=== PATIENT | male | born 1950 | race Caucasian/White ===

== ENCOUNTER 2017-10-23 08:21 | Day surgery (SDC) | payer MEDICARE, BC ==
[~2017-10-23 08:21] MED LIST: EPINEPHrine 1 MG/ML SDV ONE; Lactated Ringers 1,000 ML IV SCH; Lidocaine 1%/Sod Bicarbonate in NS 8.4% 1 ML Syringe PRN; Ropivacaine 0.5% 5 MG/ML 30 ML SDV ONE; Sodium Chloride 0.9% 10 ML Syringe FLUSH PRN
[2017-10-23] MEDS ORDERED: Lidocaine 1% 2 ML ONE (08:52)
[2017-10-23] MEDS ORDERED: fentaNYL 100 MCG/2 ML SDV ONE ×2 (08:53→11:49)
[2017-10-23] MEDS ORDERED: Midazolam 1 MG/ML 2 ML SDV ONE (08:53)
--- NOTE | 2017-10-23 08:57 | PCM.PREANE ---
Preanesthetic Assessment - Procedure Proposed Procedure: Right shoulder video arthroscopy - Anesthesia/Transfusion/Family Hx Anesthesia History: Prior Anesthesia Without Reaction Family History of Anesthesia Reaction: No Transfusion History: No Prior Transfusion(s) - Review of Systems General: No Symptoms Pulmonary: Other (BRODY with CPAP) Cardiovascular: Other (negative heart cath a couple years ago, HLD ) Gastrointestinal: No Symptoms Neurological: No Symptoms Other: Reports: None - Physical Assessment NPO Status Date: 10/22/17 NPO Status Time: 23:00 Pulse: 62 O2 Sat by Pulse Oximetry: 96 Respiratory Rate: 16 Blood Pressure: 126/88 Temperature: 36.7 C Height: 1.7 m Weight: 81 kg ASA Class: 2 Mental Status: Alert & Oriented x3 Airway Class: Mallampati = 2 Dentition: Reports: Normal Dentition Thyro-Mental Finger Breadths: 3 Mouth Opening Finger Breadths: 3 ROM/Head Extension: Full Lungs: Clear to Auscultation, Normal Respiratory Effort Cardiovascular: Regular Rate, Regular Rhythm - Lab Values: Laboratory Last Values MRSA (PCR) Negative 10/18/17 11:10 - Allergies Allergies/Adverse Reactions: Allergies Allergy/AdvReac Type Severity Reaction Status Date / Time No Known Allergies Allergy Verified 10/21/17 15:15 - Blood Blood Available: No Product(s) Available: None - Anesthesia Plan Pre-Op Medication Ordered: None - Acknowledgements Anesthesia Type Planned: General Anesthesia (LMA ), Regional Block (right interscalene block ) Pt an Appropriate Candidate for the Planned Anesthesia: Yes Alternatives and Risks of Anesthesia Discussed w Pt/Guardian: Yes Pt/Guardian Understands and Agrees with Anesthesia Plan: Yes PreAnesthesia Questionnaire HEENT History: Reports: Allergic Rhinitis Cardiovascular History: Reports: CAD, High Cholesterol Respiratory History: Reports: Sleep Apnea Gastrointestinal History: Reports: None Genitourinary History: Reports: None CRIB CLERK History: Reports: None Musculoskeletal History: Reports: Other (See Below) Other Musculoskeletal History: low back surgery Neurological History: Reports: None Psychiatric History: Reports: None Endocrine/Metabolic History: Reports: None Hematologic History: Reports: None Immunologic History: Reports: None Oncologic (Cancer) History: Reports: None Dermatologic History: Reports: None - Past Surgical History Head Surgeries/Procedures: Reports: None HEENT Surgical History: Reports: None Cardiovascular Surgical History: Reports: Other (See Below) Other Cardiovascular Surgeries/Procedures: heart catheterization Respiratory Surgical History: Reports: None GI Surgical History: Reports: None Female Surgical History: Reports: None Male Surgical History: Reports: None Endocrine Surgical History: Reports: None Neurological Surgical History: Reports: None Musculoskeletal Surgical History: Reports: None Oncologic Surgical History: Reports: None Dermatological Surgical History: Reports: None - SUBSTANCE USE Smoking Status *Q: Former Smoker Recreational Drug Use History: No - HOME MEDS Home Medications: Home Meds Aspirin [Halfprin] 81 mg PO DAILY 10/22/17 [History] Rosuvastatin Calcium [Crestor] 40 mg PO DAILY 10/22/17 [History] - CURRENT (IN HOUSE) MEDS Current Meds: Current Medications Epinephrine HCl (Adrenalin) 3 mg .XX ONETIME ONE Stop: 10/23/17 10:31 Lactated Ringer's (Ringers, Lactated) 1,000 mls @ 125 mls/hr IV ASDIRECTED PEDRO Stop: 10/23/17 23:00 Lidocaine/Sodium Bicarbonate (Buffered Lidocaine 1% In Ns 8.4%) 0.25 ml .XX ONETIME PRN PRN Reason: Prior to IV Start Stop: 10/23/17 18:00 Sodium Chloride (Saline Flush) 10 ml FLUSH ASDIRECTED PRN PRN Reason: Keep Vein Open Stop: 10/23/17 18:00 Discontinued Medications Epinephrine HCl (Adrenalin) Confirm Administered Dose 1 mg .ROUTE .STK-MED ONE Stop: 10/23/17 07:51 Fentanyl (Sublimaze) Confirm Administered Dose 100 mcg .ROUTE .STK-MED ONE Stop: 10/23/17 08:54 Lidocaine HCl (Xylocaine-Mpf 1%) Confirm Administered Dose 2 mls @ as directed .ROUTE .STK-MED ONE Stop: 10/23/17 08:53 Midazolam HCl (Versed 1 Mg/Ml) Confirm Administered Dose 2 mg .ROUTE .STK-MED ONE Stop: 10/23/17 08:54 Ropivacaine (Naropin 0.5%) Confirm Administered Dose 30 ml .ROUTE .STK-MED ONE Stop: 10/23/17 07:51
[2017-10-23] MEDS ORDERED: Triamcinolone Acetonide 40 MG/ML 1 ML MDV ONE (09:07)
[2017-10-23] MEDS ORDERED: Bupivacaine 0.25% 30 ML SDV ONE (09:07)
--- NOTE | 2017-10-23 10:28 | PCM.SN ---
- Free Text/Narrative Note: Anesthesia Note: (Interscalene block note) Date: 10/23/17 Time Out: 950 Start: 949 Stop: 1008 Surgical Procedure: Right Shoulder Video Arthroscopy with Rotator Cuff Repair Diagnosis: Right Rotator Cuff Tear Current Procedure: Right interscalene block under US guidance for postoperative pain control requested by Dr. Lopez. Patient chart reviewed, risk/benefits discussed with patient, consent obtained. Patient positioned supine, monitors/alarms on, oxygen placed via nasal cannula at 2 LPM. IV sedation administered: Versed 2mg IV @ 0955 Fentanyl 50 mcg IV @ 0959 50 mcg IV @ 1003 Right shoulder prepped with two chloropreps. Sterile drapes placed with aseptic technique noted. Under US guidance(sterile US sleeve noted) right subclavian artery visualized along with the right brachial plexus. Plexus followed up to C6 cricoid level, and area localized with 2mls of 1% lidocaine. 22gauge 2 inch stimiplex needle advanced under US with 0.8mV with stimulation of biceps noted. Good stimulation noted with decreased voltage and absent at 0.2mVs. 1ml of Normal Saline injected with loss of stimulation noted to confirm needle not placed intraneurally. Incremental dosing of 5mls with negative aspiration noted prior to each injection of 0.5% ropivacaine with 1:200,000 epinephrine. Total volume=30mls. Tolerated procedure well. Vital Signs: Pre Procedure HR: 53 RR: 16 BP: 123/77 Spo2: 99% on 2 LPM nasal cannula Post Procedure HR: 57 RR: 16 BP: 115/75 Spo2:95% on 2LPM nasal cannula
[2017-10-23] MEDS ORDERED: EPINEPHrine 1 MG/ML 30 ML MDV ONE (10:30)
[2017-10-23] MEDS ORDERED: Rocuronium 50 MG/5 ML Vial ONE (11:48)
[2017-10-23] MEDS ORDERED: Lactated Ringers 2,000 ML ONE (11:48)
[2017-10-23] MEDS ORDERED: ceFAZolin 1 GM Vial ONE (11:48)
[2017-10-23] MEDS ORDERED: Propofol 200 MG/20 ML SDV ONE ×2 (11:48→15:52)
[2017-10-23] MEDS ORDERED: Lidocaine 1% 4 ML ONE (11:49)
[2017-10-23] MEDS ORDERED: Dexamethasone 4 MG/ML 5 ML MDV ONE (11:51)
[2017-10-23] MEDS ORDERED: Ondansetron 4 MG/2 ML SDV ONE (11:51)
[2017-10-23] MEDS ORDERED: HYDROmorphone 0.5 MG/0.5 ML Syringe IVPUSH ONE (14:26)
[2017-10-23] MEDS ORDERED: ePHEDrine/Normal Saline 25 MG/5 ML Syringe ONE (16:21)
[2017-10-23] MEDS ORDERED: HYDROmorphone 1 MG/ML Syringe ONE (16:37)
--- NOTE | 2017-10-23 17:26 | PCM.POSTAN ---
POST ANESTHESIA ASSESSMENT - MENTAL STATUS Mental Status: Alert, Oriented - VITAL SIGNS Pulse Rate: 75 SaO2: 95 Resp Rate: 17 Blood Pressure: 134/75 Temperature: 36.4 C - RESPIRATORY Respiratory Status: Respiratory Rate WNL, Airway Patent, O2 Saturation Stable - CARDIOVASCULAR CV Status: Pulse Rate WNL, Blood Pressure Stable - GASTROINTESTINAL GI Status: No Symptoms - PAIN Pain Score: 0 - POST OP HYDRATION Hydration Status: Adequate & Stable
[2017-10-23] MEDS ORDERED: fentaNYL 100 MCG/2 ML SDV IVPUSH PRN (17:29)
[2017-10-23] MEDS ORDERED: Ondansetron 4 MG/2 ML SDV IVPUSH PRN (17:29)
[2017-10-23] MEDS ORDERED: HYDROmorphone 0.5 MG/0.5 ML Syringe IVPUSH PRN (17:29)
--- NOTE | 2017-10-30 07:11 | PCM.OPNOTE ---
- General Post-Op/Procedure Note Date of Surgery/Procedure: 10/23/17 Operative Procedure(s): right shoulder video arthroscopy with subacromial decompression and extensive debridement Pre Op Diagnosis: right shoulder subacromial bursitis with impingement Post-Op Diagnosis: Same Anesthesia Technique: General ET Tube, Regional Block Primary Surgeon: Marcelo Lopez Anesthesia Provider: Arianne Briseno [place] Operator: Ruth Russell EBL in mLs: 5 Complications: None Condition: Good
--- NOTE | 2017-10-30 07:40 | OR ---
DATE OF OPERATION: 10/23/2017 SURGEON: Marcelo Lopez MD OPERATION PERFORMED: Right shoulder video arthroscopy with subacromial decompression and extensive debridement. PREOPERATIVE DIAGNOSIS: Right shoulder subacromial bursitis with impingement. POSTOPERATIVE DIAGNOSIS: Right shoulder subacromial bursitis with impingement. ANESTHESIA: General endotracheal intubation with interscalene block. ANESTHESIA PROVIDER: Arianne Dick. PHOTOGRAPHER MOTION PICTURE: Ruth Russell PA-C. ESTIMATED BLOOD LOSS: Less than 5 mL. COMPLICATIONS: None. CONDITION: Stable. DESCRIPTION OF PROCEDURE: The patient was identified in the preop holding area. Proper site was marked and identified by the surgeon. The patient was taken back to the operative theater where after adequate anesthesia, the patient was placed in a lazy left lateral decubitus position. A wedge was placed posteriorly and the patient was secured to the table. Right upper extremity was then sterilely prepped and draped in the usual sterile fashion. OR time-out was performed. The patient received 2 g IV Ancef and 15 pounds of traction was applied to the right upper extremity. At this time, standard posterior incision was made. The scope trocar was introduced to the glenohumeral joint. Spinal needle was then used and anterior portal was then created. At this time, cursory examination showed significant fraying noted of the labrum as well as significant synovitis in the glenohumeral joint. The biceps tendon showed no signs of erythema or fraying and undersurface of the acromion had a small amount of delamination noted at the anterior border of the supraspinatus, but otherwise was completely intact. There was a small amount of chondromalacia noted, grade 1/2 of the glenoid and grade 1 of the humeral head, but no full-thickness cartilage defect. At this time, debridement was done of the labrum back to a stable rim. Attention was then turned to the subacromial space and a lateral portal was created. At this time, the patient was noted to have significant synovitis and bursitis. At this time, a bursectomy and synovectomy was then performed in subacromial space debriding it back, so that it was free of any erythematous tissue. At this time, the undersurface of the border of the acromion was found to be a type 3. With use of a 4-0 full-radius bur, I was able to bring it back to a type 1 with resection of the bony spur. It was found to be a type 1 acromion after acromioplasty. At this time, the rotator cuff was visualized and there were no signs of full-thickness rotator cuff tears. At this time, excess saline was drained from the shoulder, 3-0 nylon simple sutures were used for closure of the skin. The patient was placed in a sterile soft dressing and a pillow sling, and sent to the PACU in stable condition. [place] /[id number]
== END 2017-10-23 19:00 | disposition home or self-care (01) ==
LOC: JD.SDS 08:21
PROVIDERS: ATTEND Orthopaedic Surgery
DX: M75.51 Bursitis of right shoulder (principal); M25.811 Other specified joint disorders, right shoulder; I25.10 Atherosclerotic heart disease of native coronary artery without angina pectoris; G47.33 Obstructive sleep apnea (adult) (pediatric); E78.5 Hyperlipidemia, unspecified; Z95.5 Presence of coronary angioplasty implant and graft; Z87.891 Personal history of nicotine dependence; Z79.82 Long term (current) use of aspirin; Z79.899 Other long term (current) drug therapy
CPT/HCPCS: 29823; 29826; 87641; J0171; J0690; J1100; J1170; J2250; J2405; J2795; J3010; J3301; J3490; J7050; J7120; 01610; 64415; J2704